=== PATIENT | female | born 1955 | race Caucasian/White ===

== ENCOUNTER → 2023-12-15 10:14 | Outpatient (CLI) | payer MEDICARE, OTHER, SELFPAY ==
[2023-12-15 10:56] LABS: Add Manual Diff / Slide Review NO; Basophils Absolute Auto 0 /uL (0-100); Basophils Percent Auto 0.7 % (0-2); Eosinophils Absolute Auto 100 /uL (0-450); Eosinophils Percent Auto 1.7 % (2-4); Hematocrit 39.9 % (36-46); Hemoglobin 13.8 g/dL (12.0-16.0); Lymphocytes Absolute Auto 1000 /uL (1100-4500); Lymphocytes Percent Auto 29.9 % (25-40); Mean Corpuscular HGB Conc 34.5 % (30-36); Mean Corpuscular Hemoglobin 32.7 PG (26-34); Mean Corpuscular Volume 94.8 fL (80-100); Monocytes Absolute Auto 300 /uL (0-900); Monocytes Percent Auto 8.3 % (3-14); Neutrophils Absolute Auto 2100 /uL (1500-7000); Neutrophils Percent Auto 59.4 % (50-75); Platelet Count 204 X10^3/uL (150-400); Red Blood Cell Count 4.21 X10^6/uL (4.0-5.2); Red Cell Distribution Width 13.2 % (11.6-14.8); White Blood Cell Count 3.4 X10^3/uL (4.5-11.0)
[2023-12-15 11:25] LABS: Alanine Aminotransferase 30 IU/L (<35); Albumin 4.6 g/dL (3.5-5.0); Albumin Globulin Ratio 1.4 (1.0-2.8); Alkaline Phosphatase 81 U/L (38-126); Aspartate Aminotransferase 35 IU/L (14-36); BUN Creatinine Ratio 25.4 (6-22); Bilirubin Total 0.8 mg/dL (0.2-1.3); Blood Urea Nitrogen 18 mg/dL (7-17); Calcium 9.6 mg/dL (8.4-10.2); Carbon Dioxide 27 mmol/L (22-32); Chloride 106 mmol/L (98-107); Cholesterol 248 mg/dL (140-199); Estimated Glomerular Filt Rate > 60 mL/min (>60); Globulin 3.4 g/dL (1.7-4.1); Glucose 91 mg/dL (80-110); HDL Cholesterol 74 mg/dL (40-60); HEMOLYSIS < 15 (0-50); LDL Cholesterol Calculated 158 mg/dL (<100); Potassium 4.2 mmol/L (3.4-5.1); Sodium 137 mmol/L (137-145); Triglycerides 80 mg/dL (35-150)
[2023-12-15 16:01] LABS: Microalbumin Urine Random 1.1 mg/dL (0-1.6)
== END ==
LOC: LAB 10:16
PROVIDERS: PCP Family Medicine; Referring Provider Family Medicine; Visit Provider Family Medicine
DX: E78.5 Hyperlipidemia, unspecified (principal); R42 Dizziness and giddiness; I10 Essential (primary) hypertension
CPT/HCPCS: 36415; 80053; 80061; 82043; 82570; 85025

== ENCOUNTER 2024-04-04 10:07 | Day surgery (SDC) | payer MEDICARE, OTHER, SELFPAY ==
[2024-03-29 08:40] VITALS: BMI 23.6
--- NOTE | 2024-04-04 | PATH_ITS ---
[facility] Accession Number: [id number] No. of containers..01 Tissue . 01 Material submitted: . cervix - CERVIX . 01 Diagnosis: CERVIX, LEEP BIOPSY: First fragment (larger): Patchy involvement by low-grade squamous intraepithelial lesion/LEXX-1. Background atrophic change. Low-grade squamous intraepithelial lesion/LEXX-1 may extend to the blue-inked margin; electrocautery artifact obscures. The intact orange-inked endocervical margin appears negative for dysplasia; tissue disruption is focally present. Negative for high-grade dysplasia or invasive tumor. . Second fragment (smaller): Patchy involvement by low-grade squamous intraepithelial lesion / LEXX-1. Background atrophic change. Low-grade squamous intraepithelial lesion / LEXX-1 may extend to the green-inked margin; electrocautery artifact obscures. Negative for high grade dysplasia or invasive tumor. [facility] 04/07/2024 1351 Local . 01 Comment: There is a minor disagreement with Pap smear [id number]. . 01 Electronically signed: . Yuridia High MD, Pathologist NPI- [id number] . 01 Gross description: . Received in formalin with two patient identifiers and cone biopsy of cervix, are two fragments of cervix. The first is an unoriented circular fragment (1.9 x 1.4 x 0.9 cm) within partial finely granular ectocervix and a circular os 0.2 cm in diameter. The endocervical margin is inked orange while the remaining stromal margins are inked blue. The specimen is radially sectioned. The second fragment of cervix is linear (1.4 x 0.4 x 0.3 cm) with burton, finely granular ectocervix. The margin is inked green and the fragment is serially sectioned. The specimen is submitted entirely as follows: . A1-A4: Circular fragments sequential quadrants. A5: Second fragment. ([id number]) /MRV 04/07/2024 1351 Local . 01 Pathologist provided ICD-10: N87.0 . 01 CPT . 762187 Specimen Comment: A courtesy copy of this report has been sent to [phone] Performed at: [address] [id number] MD Usama Arrieta MD Phone: [phone]
[2024-04-04 10:25] VITALS: BMI 22.8
[2024-04-04 10:32] VITALS: BP 175/87; PULSE 81; RESP 16; TEMP 36.2; O2SAT 98
[2024-04-04] MEDS: LACTATED RINGERS 1,000 ML 42 ML IV (10:40)
[2024-04-04] MEDS: ACETAMINOPHEN 325 MG TABLET 975 MG PO (10:40)
--- NOTE | 2024-04-04 11:42 | P.HPOB_ITS ---
History of Present Illness History of Present Illness Reason for admission: other (Recurring abnormal Pap smears) Narrative: Ciara Bermudez is a 69 year old female 1 para 1 with recurrent abnormal Pap smears with ASCUS and LEXX 1. Patient also positive for high-risk HPV. She presents for definitive therapy with a LEEP to remove the abnormal area of the cervix. FORMERLY [facility], [facility]–1983 Medical History (Updated 02/01/24 @ 06:25 by Lisa Thurston MD) Abnormal Pap smear of cervix (2009) Chicken pox (~1960) Mumps (1959) Osteopenia (2004) Vertigo Surgical History (Updated 02/24/18 @ 16:51 by Sade Monroe) Anesthesia Status post colonoscopy Family History (Updated 02/24/18 @ 16:55 by Sade Monroe) Father Cancer Prostate cancer Grandfather Stroke Grandmother Heart disease Mother Cancer Metastatic cancer to lung Grandfather Emphysema of lung Grandmother No problems noted. Social History household members: family Smoking Status: Former smoker second hand exposure: No alcohol intake: current substance use type: does not use Meds Home Medications and Allergies Home Medications Medication Instructions Recorded Confirmed Type No Known Home Medications 03/02/18 12/15/23 History Allergies Allergy/AdvReac Type Severity Reaction Status Date / Time No Known Drug Allergies Allergy Verified 04/04/24 10:22 Exam Vital Signs (past 8 hours): - 04/04/24 10:32 Temperature 97.1 F L Pulse Rate 81 Respiratory Rate 16 Blood Pressure 175/87 H Pulse Oximetry 98 Oxygen Delivery Method Room Air Oxygen Delivery Method Room Air Narrative Exam Narrative: HEENT: No thyromegaly, no anterior cervical or supraclavicular lymphadenopathy. Lungs:Clear to auscultation bilaterally, no wheezes. Cardiovascular: Regular rate and rhythm, no murmurs, rubs, or gallops. Abdomen: No scars. No hepatosplenomegaly. No masses palpable. External genitalia: Normal Vagina: Normal Cervix: Normal Bimanual exam: 5 Week size uterus. Mobile. Extremities: No edema Assessment & Plan Assessment & Plan narrative: Assessment: 69-year-old 1 para 1 with recurrent abnormal Pap smears with ASCUS and LEXX 1 Positive high-risk HPV Patient desires definitive therapy Plan: LEEP cone biopsy of the cervix The risks, benefits, and alternatives to the procedure were explained to the patient. The risks including bleeding and infection. She understands these risks and agrees to proceed. A full par Q was held and consent form was signed. Time-Based Coding :: [TOTAL MINUTES] spent with patient and on the chart (including review of chart, obtaining history, exam, reviewing outside data, placing orders, documenting exam and treatment plan, and counseling patient) on [DATE].
--- NOTE | 2024-04-04 11:44 | PM.PREOP ---
Pre-operative Note Interval Note History & Physical reviewed/Exam performed by Physician: Yes Changes to H&P: No H&P completed within 30 days and has changed as indicated here:: 04/04/24
--- NOTE | 2024-04-04 12:04 | SUR.OPER ---
Lithotomy on padded OR bed, head on pillow, arms secured on padded arm boards at <90 degrees abduction. Legs secured in padded yellow fins stirrups.
[2024-04-04] MEDS: POTASSIUM IODIDE/IODINE 473 ML SOLUTION TOP (12:10)
[2024-04-04 12:16] VITALS: BP 166/86; PULSE 59; RESP 14; TEMP 36.2; O2SAT 98
[2024-04-04 12:23] VITALS: BP 163/81; PULSE 57; RESP 14; O2SAT 99
--- NOTE | 2024-04-04 12:26 | PM.GYNOP.1 ---
Operative Date/Time/Diagnoses Date of procedure: 04/04/24 Time of procedure: 12:26 Pre-op diagnosis: Recurrent abnormal Paps Positive high-risk HPV Post-op diagnosis: same Procedure & Clinicians Procedure: Procedures Operation Date: 04/04/24 11:45 Actual Procedure Side Surgeon p LEEP cone bx of cervix Lisa Thurston MD Indications: Recurrent abnormal Pap smears Desires definitive therapy Surgeon: Lisa Thurston Anesthesia Type: General (LMA) Operative Notes Findings: Lugol's light area surrounding the os Closure Type: not applicable Specimen(s): other (Cone bx of the cervix) Estimated blood loss (mL): 5 Blood products transfused: none Procedure in detail: After informed consent was obtained, the patient was takent to the operating room where she was placed in the dorasal supine position. After adequate LMA general anesthesia was obtained, she was placed in the dorsal lithotomy position and prepped and draped in the usual sterile fashion. A timeout was perfomed. A platic coated bivalve speculum was placed into the vagina. Lugol's was applied to the cervix. A plastic coated single tooth tenaculum was placed on the anterior lip of the cervix. Using 3 sources of suction, a leep was performed using the 15mm loop. Ball cautery was used for hemostasis. Settings 80 cut and 60 cautery. Hemostasis was achieved. The single tooth was removed. The speculum was removed. Sponge, lap and instrument counts were correct x 2. The patient tolerated the procedure well and was taken to PACU in stable condition. All personnel wore N-95 masks during the case. Complications: none Post-operative Condition: stable Disposition: PACU Plan for aftercare: Home after recovery
[2024-04-04 12:27] VITALS: BP 159/76; PULSE 60; RESP 13; O2SAT 99
[2024-04-04 12:28] VITALS: BP 158/75; PULSE 62; RESP 14; O2SAT 99
[2024-04-04] MEDS: KETOROLAC 30 MG/ML VIAL 15 MG IV (12:36)
== END 2024-04-04 12:53 | disposition home or self-care (01) ==
PROVIDERS: PCP Family Medicine; Referring Provider Obstetrics & Gynecology; Visit Provider Obstetrics & Gynecology
PROC: 0UBC7ZZ Excision of Cervix, Via Natural or Artificial Opening (ICD-10-PCS; CPT 57522; principal; 2024-04-04 11:45)
DX: N87.0 Mild cervical dysplasia (principal); Z86.001 Personal history of in-situ neoplasm of cervix uteri
CPT/HCPCS: 57522; J1100; J1885; J2405; J2704; J3010